=== PATIENT | female | born 1980 | race Caucasian/White ===

== ENCOUNTER 2017-07-24 08:00 | Inpatient (IN) | payer OTHER, BC ==
[~2017-07-24] VITALS: Ht 157.5 cm; Wt 62.2 kg
[~2017-07-24 08:00] MED LIST: FERR27TA PO; PREN1TAB49 PO
[2017-07-24] MEDS ORDERED: LIDOCAINE 1% (MPF) 30 ML INJ INJ PRN (08:30)
[2017-07-24] MEDS ORDERED: OXYTOCIN 30 UNITS/LR 500 ML IV PRN (08:30)
[2017-07-24] MEDS ORDERED: IBUPROFEN 600 MG TAB PO PRN (08:30)
[2017-07-24] MEDS ORDERED: MISOPROSTOL 200 MCG TAB PR PRN (08:30)
[2017-07-24] MEDS ORDERED: AMPICILLIN 2 GM/NS (PMX) 100 ML IV ONE (08:30)
[2017-07-24] MEDS ORDERED: MINERAL OIL LIGHT 10 ML VIAL TOP ONE ×2 (08:30→21:00)
[2017-07-24] MEDS ORDERED: CARBOPROST 250 MCG INJ IM PRN (08:30)
[2017-07-24] MEDS ORDERED: OXYTOCIN 30 UNITS/LR 500 ML IV SCH ×3 (08:30→10:30)
[2017-07-24] MEDS ORDERED: METHYLERGONOVINE 0.2 MG INJ IM PRN (08:30)
[2017-07-24] MEDS ORDERED: BUTORPHANOL 2 MG INJ IV PRN (08:30)
[2017-07-24 08:32] VITALS: Ht 157.5 cm; Wt 62.2 kg
[2017-07-24 08:33] VITALS: BP 115/69; PULSE 83
[2017-07-24] MEDS: LACTATED RINGER'S 1,000 ML IV SCH ×2 (08:57→16:02)
[2017-07-24 09:29] LABS: BASOPHILS % 0.3 % (0.0-2.0); EOSINOPHILS % 0.3 % (0.0-7.0); HEMOGLOBIN 11.1 g/dl (12.0-16.0); LYMPHOCYTES # 1.5 10^3/ul (0.8-2.9); LYMPHOCYTES % 24.2 % (15.0-51.0); MEAN CORPUSCULAR HEMOGLOBIN 30.1 pg (29.0-33.0); MEAN CORPUSCULAR HGB CONC 33.6 g/dl (32.0-37.0); MEAN CORPUSCULAR VOLUME 89.4 fl (82.0-101.0); MEAN PLATELET VOLUME 11.6 fl (7.4-10.4); MONOCYTE # 0.4 10^3/ul (0.3-0.9); MONOCYTES % 6.2 % (0.0-11.0); NEUTROPHIL # 4.3 10^3/ul (1.6-7.5); NEUTROPHILS % 68.7 % (39.0-77.0); PLATELET COUNT 141 10^3/UL (140-415); RED BLOOD COUNT 3.69 10^6/ul (4.20-5.40); RED CELL DISTRIBUTION WIDTH 13.2 % (11.5-14.5); WHITE BLOOD COUNT 6.3 10^3/ul (4.8-10.8)
[2017-07-24 09:44] LABS: INR 0.88; PROTIME 11.9 Sec (12.2-14.2); PT RATIO 0.9
[2017-07-24] MEDS: DEXTROSE 5%-LR 1,000 ML IV SCH ×2 (10:56→19:49)
[2017-07-24] MEDS ORDERED: LACTATED RINGER'S 1,000 ML IV PRN (12:00)
[2017-07-24] MEDS: AMPICILLIN 1 GM/NS (PMX) 50 ML IV SCH ×3 (12:29→20:26)
[2017-07-24] MEDS ORDERED: FENTAnyl 2MCG/ML-ROPIV 0.2% 100 ML ONE (14:03)
[2017-07-24] MEDS ORDERED: NALOXONE (0.4 MG/ML) INJ IV PRN (14:30)
[2017-07-24] MEDS ORDERED: FENTAnyl 2MCG/ML-ROPIV 0.2% 100 ML BAG EPI SCH (14:30)
[2017-07-24] MEDS ORDERED: LIDOCAINE 2% (SDV) 5 ML INJ ONE (22:51)
--- NOTE | 2017-07-24 23:25 | LDN ---
Date/Time of Note Date/Time of Note DATE: 07/24/17 TIME: 23:22 Delivery Summary normal vaginal delivery Weeks of Gestation 39weeks Placenta Delivered: Spontaneously Meconium: none Episiotomy: No Perineal laceration: 1 Laceration repair: 0000ch gut Anesthesia type: Epidural Estimated blood loss: 300 Sponge & Needle done & correct: Yes All needle counts correct: Yes Any foreign bodies felt in the: No Problems: Delivery Information Sex Infant Sex: female Apgars 1 Minute: 9 5 Minute: 9 Suctioning Nose & mouth suctioned at nolvia: Yes Delee suction performed: No Umbilical Cord Umbilical cord with: 3 Vessels Cord presentations: nuchal cord Nuchal cord present X: 1 Cord Blood was obtained: Yes Mother & Baby Disposition Disposition Mom & Baby to Maternity; Good: Yes Mom transferred to: Other Baby to NICU: No () AZEB LILLY MD Jul 24, 2017 23:25
--- NOTE | 2017-07-24 23:31 | HP ---
Date/Time of Note Date/Time of Note DATE: 07/24/17 TIME: 23:25 OB - History Hx of Present Free Text/Dictation 36y.o A1(sab) at 39weeks for induction of labor for precipitous labor with last delivery. VE 1-2cm /70%/-2 GBS positive desires also tubal sterilization admitted for induction with pitocin Chief Complaint: IOL Estimated Due Date: Jul 31, 2017 : 8 Para: 6 Spontaneous : 1 Therapeutic : 0 Care: Good Care Ultrasounds: Normal mid trimester US Obstetrical Complications: Gestational Diabetes Medical Complications: None Past Family/Social History * Past Medical, Surgical, Family and Obstetric Histories reviewed from chart. Blood Type: A+ Rubella: immune RPR/VDRL: Negative GBS Status: Positive HBsAG: Negative OB Admission Exam Vital Signs Vital Signs Vital Signs Date Time Temp Pulse Resp B/P Pulse Ox O2 Delivery O2 Flow Rate FiO2 07/24/17 08:33 98.2 83 115/69 Physical Exam HEENT: WNL Heart: Rhythm Normal Lungs: Clear, Equal Abdomen: WNL Extremities: Normal Reflexes: Normal Cervical Dilatation: 2cm Effacement: 75% Station: -2 Membranes: Intact Amniotic Fluid: Unevaluable Heart Rate: 130's Accelerations: Accelerations Present Decelerations: No Decelerations Varibility: Moderate Contractions on Admission: None Last 72 hourBlood Glucose Bedside Glucose - 72 Hours Test 07/24/17 12:01 07/24/17 16:08 07/24/17 19:59 Bedside Glucose 91mg/dL (70-220) 56mg/dL (70-220) L 77mg/dL (70-220) Last 72 hours Lab Results CBC & BMP 07/24/17 09:00 OB Assessment/Plan Reason for admission: induction of labor Other Assessment: IUP 39w Plan: Induction Induction Method: per Pitocin Protocol AZEB LILLY MD Jul 24, 2017 23:31
--- NOTE | 2017-07-24 23:45 | SIPON ---
Date/Time of Note Date/Time of Note DATE: 07/24/17 TIME: 23:42 Operative Report Preoperative Diagnosis status desire to have tubal sterilization Postoperative Diagnosis same Operation/Procedure Performed bilateral partial salphingectomy Surgeon see signature line dermatology physician assistant madelaine colon Anesthesia: epidural Estimated blood loss: minimal Transfusion Required none Specimen portions of both follopian tubes Grafts/Implants none Complications none AZEB LILLY MD Jul 24, 2017 23:45
[2017-07-25] MEDS ORDERED: morphine 2 MG INJ IV ONE
[2017-07-25] MEDS ORDERED: MEPERIDINE 25 MG INJ IV ONE
[2017-07-25] MEDS: LACTATED RINGER'S 1,000 ML IV SCH (00:17)
[2017-07-25] MEDS ORDERED: LANOLIN 7 GM TUBE TOP PRN (00:30)
[2017-07-25] MEDS ORDERED: ZOLPIDEM 5 MG TAB PO PRN (00:30)
[2017-07-25] MEDS ORDERED: OXYTOCIN 30 UNITS/LR 500 ML IV PRN (00:30)
[2017-07-25] MEDS ORDERED: OXYCODONE/ASPIRIN (4.88/325) TAB PO PRN ×2 (00:30)
[2017-07-25] MEDS ORDERED: BENZOCAINE 20% 56 ML SPRAY TOP PRN (00:30)
[2017-07-25] MEDS ORDERED: CARBOPROST 250 MCG INJ IM PRN (00:30)
[2017-07-25] MEDS ORDERED: METHYLERGONOVINE 0.2 MG INJ IM PRN (00:30)
[2017-07-25] MEDS ORDERED: MISOPROSTOL 200 MCG TAB PR PRN (00:30)
[2017-07-25] MEDS ORDERED: WITCH HAZEL/GLYCERIN PAD PR PRN (00:30)
[2017-07-25 01:10] VITALS: BP 117/58; PULSE 84; RESP 18
[2017-07-25 04:00] VITALS: BP 96/55; PULSE 75; RESP 18
--- NOTE | 2017-07-25 04:10 | OPR ---
DATE OF OPERATION: 07/24/2017 PREOPERATIVE DIAGNOSES: Status , desire for tubal sterilization. POSTOPERATIVE DIAGNOSES: Status , desire for tubal sterilization. PROCEDURE: bilateral salpingectomy, partial salpingectomy. ANESTHESIA: Epidural. ANESTHESIOLOGIST: . SURGEON: Bear Oro MD ESTIMATED BLOOD LOSS: Less than 10 mL. DESCRIPTION OF PROCEDURE: Under the proper induction of epidural anesthesia, the patient was placed in the supine position. A transverse incision was made, subumbilical region and incision carried d own to the fascia to the peritoneum and the right fallopian tube was identified, which was grasped w ith a Michael forceps at the avascular in the mesosalpinx. This loop of the tube was doubly ligated with 0 plain and the loop of tube was excised. Tubal lumen was cauterized. The same procedure was done on the left side, the left fallopian tube was identified, traced to the fimbriated end and the n created a loop of tube on the avascular area in the mesosalpinx. This loop of tube was doubly lig ated with 0 plain and the loop of tube was excised. Tubal lumen was cauterized. No bleeder was not ed. The peritoneum was closed with 0 Vicryl in pursestring manner. Fascia closed which was stuck w ith peritoneum, was closed over on in continuous manner. The skin closed with 4-0 Monocryl in subcu ticular manner. Pressure dressing applied. Estimated blood loss almost none and the patient was se nt to the recovery room in stable condition. Dictated By: BEAR CHAVEZ/HAILEY Conf#: [id number] DID#: [id number]
[2017-07-25] MEDS: IBUPROFEN 600 MG TAB PO SCH ×4 (05:34→23:53)
--- NOTE | 2017-07-25 07:40 | PN ---
Date/Time of Note Date/Time of Note DATE: 07/25/17 TIME: 07:37 OB Subjective Subjective Subjective no appetite feeling ok , but something bothering her poss family matter OB Objective Objective Objective vss afebrile abdomen soft wound dry fundus firm lochia min calf neg for tenderness OB Assessment/Plan Other Assessment: s/p and BTL Other plan: d/s home in am AZEB LILLY MD Jul 25, 2017 07:40
[2017-07-25 08:00] VITALS: BP 120/71; PULSE 56; RESP 18
[2017-07-25] MEDS ORDERED: ACCU-CHEK XX ONE (08:00)
[2017-07-25 09:19] LABS: BASOPHILS % 0.2 % (0.0-2.0); EOSINOPHILS % 0.1 % (0.0-7.0); HEMATOCRIT 32.8 % (37.0-47.0); HEMOGLOBIN 11.1 g/dl (12.0-16.0); LYMPHOCYTES # 1.7 10^3/ul (0.8-2.9); LYMPHOCYTES % 17.6 % (15.0-51.0); MEAN CORPUSCULAR HEMOGLOBIN 30.1 pg (29.0-33.0); MEAN CORPUSCULAR HGB CONC 33.8 g/dl (32.0-37.0); MEAN CORPUSCULAR VOLUME 88.9 fl (82.0-101.0); MEAN PLATELET VOLUME 11.9 fl (7.4-10.4); MONOCYTE # 0.6 10^3/ul (0.3-0.9); MONOCYTES % 5.8 % (0.0-11.0); NEUTROPHIL # 7.1 10^3/ul (1.6-7.5); NEUTROPHILS % 75.9 % (39.0-77.0); PLATELET COUNT 143 10^3/UL (140-415); RED BLOOD COUNT 3.69 10^6/ul (4.20-5.40); RED CELL DISTRIBUTION WIDTH 12.9 % (11.5-14.5); WHITE BLOOD COUNT 9.4 10^3/ul (4.8-10.8)
[2017-07-25] MEDS: SENNA/DOCUSATE NA (8.6MG/50MG) TAB PO SCH ×2 (09:53→21:06)
[2017-07-25 12:00] VITALS: BP 110/60; PULSE 58; RESP 18
[2017-07-25 16:00] VITALS: BP 105/58; PULSE 62; RESP 16
[2017-07-25 20:00] VITALS: BP 102/62; PULSE 76; RESP 18
[2017-07-26 04:00] VITALS: BP 98/53; PULSE 63; RESP 18
[2017-07-26] MEDS: IBUPROFEN 600 MG TAB PO SCH ×2 (05:55→12:23)
[2017-07-26] MEDS ORDERED: DIPHTH/TET/ACEL PERTUSS (ADULT) 0.5 ML VIAL IM* ONE (09:00)
[2017-07-26 09:23] VITALS: BP 105/63; PULSE 72; RESP 20
--- NOTE | 2017-07-26 10:09 | PD.PPDC ---
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
--- NOTE | 2017-07-26 10:12 | DS ---
Date/Time of Note Date/Time of Note DATE: 07/26/17 TIME: 10:10 Obstetrical Discharge Record Final Diagnosis Final Diagnosis: Term delivered Vaginal Delivery Obstetrical Delivery: Laceration, Repaired, Bilateral Tubal Ligation Complications Induction: Yes Rupture of Membranes: No Condition on Discharge Physical Assessment Last Vitals: VSS afebrile Voiding: Yes Bowel Movement: Yes Breast: Soft, non-tender Fundus: Firm Abdomen and Incision: incision dry Calf Tenderness: No Patient Condition: Stable AZEB LILLY MD Jul 26, 2017 10:12
== END 2017-07-26 14:38 | disposition home or self-care (01) | DRG 767 ==
LOC: L-D 08:09 → PP1 07-25 01:13
PROVIDERS: ADMIT Obstetrics & Gynecology; ATTEND Obstetrics & Gynecology
PROC: 0UL70ZZ Occlusion of Bilateral Fallopian Tubes, Open Approach (ICD-10-PCS; 2017-07-24)
PROC: 0HQ9XZZ Repair Perineum Skin, External Approach (ICD-10-PCS; 2017-07-24)
PROC: 10E0XZZ Delivery of Products of Conception, External Approach (ICD-10-PCS; principal; 2017-07-24 08:00)
DX: O24.92 Unspecified diabetes mellitus in childbirth (principal); O69.81X0 Labor and delivery complicated by cord around neck, without compression, not applicable or unspecified; O70.0 First degree perineal laceration during delivery; Z30.2 Encounter for sterilization; Z3A.39 39 weeks gestation of pregnancy; Z37.0 Single live birth
CPT/HCPCS: 62319; 82947; 82962; 85025; 85610; 85730; 86592; 86900; 86901; 87340; 90715; 99464; J0290; J2175; J2270; J2590; J3010; J7120; J7121